=== PATIENT | female | born 1995 | race Caucasian/White ===

== ENCOUNTER 2018-10-10 23:28 | Emergency (ER) | payer OTHER ==
[~2018-10-10] VITALS: Ht 152.4 cm; Wt 82.1 kg
[2018-10-10 23:36] VITALS: Ht 152.4 cm; Wt 82.1 kg
[2018-10-11 02:32] VITALS: BP 131/78
== END 2018-10-11 02:37 | disposition home or self-care (01) ==
LOC: ED 23:28
DX: O99.513 Diseases of the respiratory system complicating pregnancy, third trimester (principal); Z3A.36 36 weeks gestation of pregnancy
CPT/HCPCS: 87804; Q0092

== ENCOUNTER 2018-11-18 16:23 | Emergency (ER) | payer OTHER ==
[~2018-11-18] VITALS: Ht 152.4 cm; Wt 74.4 kg
[2018-11-18 16:37] VITALS: BP 133/109; Ht 152.4 cm; Wt 74.4 kg
== END 2018-11-18 17:03 | disposition home or self-care (01) ==
LOC: ED 16:23
DX: O90.0 Disruption of cesarean delivery wound (principal); Z98.890 Other specified postprocedural states; Z90.49 Acquired absence of other specified parts of digestive tract